=== PATIENT | female | born 1950 | race Caucasian/White ===

== ENCOUNTER 2017-08-20 13:30 | Outpatient (CLI) | payer BC ==
--- NOTE | 2017-08-20 15:57 | MRI ---
CERVICAL SPINE MRI WITHOUT CONTRAST 08/20/17 HISTORY: Cervical radiculitis. Neck pain radiating down both shoulders, arms, and hands. Headache x6 to 8 javier hs. COMPARISON: None. TECHNIQUE: Cervical spine MRI is performed without intravenous administration. Multisequential, multiplanar imag ing is performed. FINDINGS: Appropriate T1 marrow signal intensity of the cervical vertebrae. Cervical spine vertebral body heigh t is maintained. No fracture. No significant STIR hyperintensity to suggest edema or ligamentous inju ry. The visualized brain parenchyma, cervicomedullary junction, cervical cord, and the upper thoracic cor d have a normal size and signal intensity. C2-C3: No significant disc osteophyte complex. No significant central canal stenosis or foraminal olga rowing. C3-C4: No significant disc osteophyte complex. No significant central canal stenosis Mild bilateral f oraminal narrowing. C4-C5: No significant disc osteophyte complex. No significant central canal stenosis. Mild bilateral foraminal narrowing. C5-C6: Broad based disc osteophyte complex abuts the thecal sac. No significant central canal stenosi s. Right neural foramen is patent. Minimal left foraminal narrowing. C6-C7: Broad based disc osteophyte complex with a central component. Mild central canal stenosis. Dale ral foramina are patent bilaterally. C7-T1: No significant disc osteophyte complex. No significant central canal stenosis or foraminal olga rowing. IMPRESSION: Degenerative changes of the cervical spine as above. No high grade central canal stenosis. No high gr penny foraminal narrowing. POS: [facility]
== END 2017-08-20 13:31 | disposition home or self-care (01) ==
LOC: SCSMRI 13:30
PROVIDERS: ATTEND Orthopaedic Surgery Hand Surgery
DX: M47.22 Other spondylosis with radiculopathy, cervical region (principal)
CPT/HCPCS: 72141

== ENCOUNTER 2017-10-12 13:45 | Outpatient (CLI) | payer BC | END 2017-10-12 13:46 | disposition home or self-care (01) | LOC: BICMRI 13:45 | PROVIDERS: ATTEND Physician Assistant Surgical | DX: M47.26 Other spondylosis with radiculopathy, lumbar region (principal); M47.22 Other spondylosis with radiculopathy, cervical region; M48.061 Spinal stenosis, lumbar region without neurogenic claudication; M89.9 Disorder of bone, unspecified; M54.6 Pain in thoracic spine | CPT/HCPCS: 72050; 72110; 72146; 72148 ==

== ENCOUNTER 2017-12-11 10:26 | Outpatient (CLI) | payer BC ==
[2017-12-11 11:49] LABS: Hemoglobin 14.7 g/dL (12.0-16.0); Mean Corpuscular HGB CONC 33.9 g/dL (32.0-36.0); Mean Corpuscular Hemoglobin 31.2 pg (27.0-31.0); Platelet Count 230 thou/uL (130-400); RBC Distribution Width 11.5 % (11.5-14.5); White Blood Cell (WBC) Count 4.3 thou/uL (4.8-10.8)
[2017-12-11 11:55] LABS: INR-International Normal Ratio 0.9; PTT 28.4 SEC (22.9-36.1); Prothrombin Time 12.4 SEC (12.0-14.7)
[2017-12-11 12:12] LABS: Anion Gap 12 mmol/L (10-20); BUN (Urea Nitrogen) 23 mg/dL (9.8-20.1); Calc. Creatinine Clearance 0 mL/min (70-130); Calcium 9.6 mg/dL (7.8-10.44); Carbon Dioxide 29 mmol/L (23-31); Chloride 103 mmol/L (98-107); Estimated GFR-MDRD 73; Glucose 85 mg/dL (80-115); Potassium 4.5 mmol/L (3.5-5.1); Sodium 139 mmol/L (136-145)
== END 2017-12-11 10:27 | disposition home or self-care (01) ==
LOC: LABBT 10:26
PROVIDERS: ATTEND Surgery
DX: Z01.818 Encounter for other preprocedural examination (principal); M48.061 Spinal stenosis, lumbar region without neurogenic claudication; M54.16 Radiculopathy, lumbar region
CPT/HCPCS: 80048; 85027; 85610; 85730; 93005; 93010

== ENCOUNTER 2018-02-18 09:42 | Outpatient (CLI) | payer BC ==
[2018-02-18 10:43] LABS: Hemoglobin 15.1 g/dL (12.0-16.0); Mean Corpuscular HGB CONC 33.5 g/dL (32.0-36.0); Mean Corpuscular Hemoglobin 30.8 pg (27.0-31.0); Mean Platelet Volume 7.3 fL (7.4-10.4); Platelet Count 243 thou/uL (130-400); RBC Distribution Width 11.6 % (11.5-14.5); Red Blood Cell (RBC) Count 4.91 mill/uL (4.20-5.40); White Blood Cell (WBC) Count 5.4 thou/uL (4.8-10.8)
[2018-02-18 10:48] LABS: PTT 28.6 SEC (22.9-36.1); Prothrombin Time 12.7 SEC (12.0-14.7)
[2018-02-18 11:09] LABS: Anion Gap 13 mmol/L (10-20); BUN (Urea Nitrogen) 13 mg/dL (9.8-20.1); Calc. Creatinine Clearance 0 mL/min (70-130); Carbon Dioxide 27 mmol/L (23-31); Chloride 104 mmol/L (98-107); Estimated GFR-MDRD 70; Glucose 93 mg/dL (80-115); Potassium 4.1 mmol/L (3.5-5.1); Sodium 140 mmol/L (136-145)
== END 2018-02-18 09:43 | disposition home or self-care (01) ==
LOC: LABBT 09:42
PROVIDERS: ATTEND Surgery
DX: Z01.818 Encounter for other preprocedural examination (principal); M48.061 Spinal stenosis, lumbar region without neurogenic claudication; M54.16 Radiculopathy, lumbar region
CPT/HCPCS: 80048; 85027; 85610; 85730; 93005; 93010

== ENCOUNTER 2018-02-25 07:30 | Inpatient (IN) | payer BC ==
[2018-02-18 10:15] VITALS: BMI 25.7
[2018-02-25] MEDS ORDERED: Clindamycin/D5W 900 mg/50 ml Premix Bag ONE (07:54)
[2018-02-25] MEDS ORDERED: Levofloxacin 500 mg/D5W 100 ml Premix Bag ONE (07:55)
[2018-02-25] MEDS ORDERED: Bacitracin Zinc Ointment 30 gm TUBE ONE (09:01)
[2018-02-25] MEDS ORDERED: Fentanyl 100 MCG/2 ML VIAL ONE ×3 (09:38→13:32)
[2018-02-25] MEDS ORDERED: Midazolam HCl 2 mg/2 ml Vial ONE (09:52)
--- NOTE | 2018-02-25 12:11 | OP ---
DATE OF PROCEDURE: 02/25/2018 OR: 12 WOUND TYPE: Type 1 wound. SURGEON: Remy Nunn M.D. [employer] PICKER: Rajesh Adler PA-C. PREPROCEDURE DIAGNOSES: L4-5 stenosis with right L3 radiculopathy with right L2-L3 stenosis. POSTPROCEDURE DIAGNOSES: L4-5 stenosis with right L3 radiculopathy with right L2-L3 stenosis. PROCEDURE: 1. Right L2-L3 hemilaminotomy, foraminotomy and diskectomy. 2. L4-L5 laminectomy, partial facetectomy, and foraminotomies. 3. Use of operative microscope for microdissection. DESCRIPTION OF PROCEDURE: After informed consent was obtained from the patient, the patient brought to OR 12. Proper patient pause and identification was carried out. She was placed in excellent endo tracheal anesthesia and positioned prone on the OR table. All appropriate points were padded. We id entified the L2-L3 segment and a linear lowell was made over this region along with the L4-L5. This wa s kept at 1 incision given the anatomic layout of the patient's spine. Following proper patient paus e and identification and sterile cleansing, preparation and draping, the wound was then opened with a combination of sharp, monopolar and blunt dissection, we exposed the L4-L5 lamina. Localization melinda m confirmed our area of interest. We then performed L4-L5 laminectomy, partial facetectomy, foramino tomies excellent decompression of the common dural tube and the L4-L5 nerve roots. We then turned ou r attention to the right L2-L3 segment and hemilaminotomy was performed following exposure with excel lent decompression of the right L2-L3 segment. The microscope was brought in the field with a microd iskectomy performed at the right L2-L3 segment with excellent decompression of the right L2 and right L3 nerve roots. Copious irrigation occurred throughout. There was no CSF leak. We maximized hemos tasis. The wound was then closed in anatomic layers following the sprinkling of vancomycin powder. The patient then emerged from anesthesia.
[2018-02-25] MEDS ORDERED: Acetaminophen 325 MG TAB PO PRN (12:36)
[2018-02-25] MEDS ORDERED: traMADol HCl 50 MG TAB PO PRN (12:36)
[2018-02-25] MEDS ORDERED: Milk Of Magnesia 30 ML UDCUP PO PRN (12:36)
[2018-02-25] MEDS ORDERED: tiZANidine HCl 4 MG TAB PO PRN (12:36)
[2018-02-25] MEDS ORDERED: Bisacodyl 10 MG SUPP PR PRN (12:36)
[2018-02-25] MEDS ORDERED: Mag-Al 1200 mg/1200 mg/30 ML UDCUP PO PRN (12:36)
[2018-02-25] MEDS ORDERED: Promethazine HCl 25 MG/ML VIAL IM PRN (12:36)
[2018-02-25] MEDS ORDERED: Fleet Enema 133 ML BOT PR PRN (12:36)
[2018-02-25] MEDS ORDERED: Acetaminophen/Codeine 30-300mg Tablet PO PRN (12:36)
[2018-02-25] MEDS ORDERED: Ketorolac Tromethamine 30 MG/ML VIAL ONE (14:31)
[2018-02-25] MEDS ORDERED: PHENYLEPHRINE-NS 100 MCG/ML 10 ML SYRINGE ONE (14:43)
[2018-02-25] MEDS ORDERED: Ondansetron HCl/PF 4 MG/2 ML Vial ONE (14:43)
[2018-02-25] MEDS ORDERED: Glycopyrrolate 0.2 MG/ML 5 ML SYRINGE ONE (14:43)
[2018-02-25] MEDS ORDERED: Dexamethasone 20 MG/5 ML VIAL ONE (14:43)
[2018-02-25] MEDS ORDERED: PROPOFOL 200 MG/20 ML VIAL ONE (14:43)
[2018-02-25] MEDS ORDERED: ePHEDrine/0.9% NaCl/PF SYRINGE 50 mg/10 ml ONE (14:43)
[2018-02-25] MEDS ORDERED: Lidocaine 1% PF 5 ML VIAL ONE (14:43)
[2018-02-25] MEDS: Clindamycin/D5W 900 MG in Premix Bag 1 BAG IVPB SCH ×2 (15:49→23:35)
[2018-02-25] MEDS: Sodium Chloride 0.9% 1,000 ML IV SCH (16:16)
[2018-02-25] MEDS: Stress 600 With Zinc 1 TAB PO SCH (21:16)
[2018-02-25] MEDS: HYDROcodone/Acetaminophen 7.5/325 mg Tablet PO PRN (23:46)
[2018-02-26] MEDS: Sodium Chloride 0.9% 1,000 ML IV SCH (01:38)
[2018-02-26] MEDS ORDERED: Venlafaxine HCl XR 75 MG CAP PO SCH (09:00)
[2018-02-26] MEDS ORDERED: Lactinex Tablet PO SCH (09:00)
[2018-02-26] MEDS: HYDROcodone/Acetaminophen 7.5/325 mg Tablet PO PRN (09:37)
[2018-02-26] MEDS: Stress 600 With Zinc 1 TAB PO SCH (09:38)
[2018-02-26 12:21] VITALS: BP 124/75; TEMP 98.4
--- NOTE | 2018-02-26 15:29 | PRG ---
DATE OF SERVICE: 02/26/2018 Ms. Lombardo is postoperative day 1 from right L2-L3 hemilaminotomy, foraminotomy, diskectomy, and L4 -L5 laminectomy. She is doing well with improvement in her leg pain. She is mobilizing some, but we would like to maximize this and work on pain control. Should she meet criteria, we will plan for di dayanaraal. Her exam has demonstrated good strength in the lower extremity myotomes.
== END 2018-02-26 16:21 | disposition home or self-care (01) | DRG 520 ==
LOC: SDC 07:30 → SURG A 15:13
PROVIDERS: ADMIT Surgery; ATTEND Surgery
PROC: 0SB20ZZ Excision of Lumbar Vertebral Disc, Open Approach (ICD-10-PCS; principal; 2018-02-25)
PROC: 01NB0ZZ Release Lumbar Nerve, Open Approach (ICD-10-PCS; 2018-02-25)
DX: M48.061 Spinal stenosis, lumbar region without neurogenic claudication (principal); M54.16 Radiculopathy, lumbar region
CPT/HCPCS: 76001; A4216; J1100; J1885; J1956; J2001; J2250; J2405; J2704; J3010; J3370; J3490

== ENCOUNTER 2018-08-06 08:26 | Day surgery (SDC) | payer BC ==
[2018-08-05 08:48] VITALS: BMI 25.7
[2018-08-06 09:25] LABS: Bacteria/HPF None Seen HPF (None Seen); Hyaline Casts/LPF 4-6 HYALINE CAST LPF (0-3 Hyaline); Pathc Cast-AUWi Flag 0.72 (0-2.49); RBC/HPF 0-3 HPF (0-3); WBC/HPF 0-3 HPF (0-3)
--- NOTE | 2018-08-06 09:27 | RAD ---
TWO VIEWS CHEST: Date: 08-06-18 Comparison: None. History: Pre-operative patient. FINDINGS: There is no pneumothorax, pleural fluid, focal consolidation or alveolar edema. Heart and mediastinal contours appear grossly unremarkable. IMPRESSION: No acute findings. POS: [facility]
[2018-08-06 09:48] LABS: #Eosinphils 0.1 thou/uL (0.0-0.7); #Lymphocytes 1.2 thou/uL (1.20-3.40); #Monocytes 0.4 thou/uL (0.11-0.59); #Neutrophils 2.8 thou/uL (1.40-6.50); %Basophils 0.9 % (0.0-1.0); %Eosinophils 2.3 % (0.0-10.0); %Lymphocytes 26.8 % (21.0-51.0); %Monocytes 7.8 % (0.0-10.0); Mean Corpuscular HGB CONC 32.3 g/dL (32.0-36.0); Mean Corpuscular Hemoglobin 29.4 pg (27.0-31.0); Mean Corpuscular Volume 91.2 fL (78.0-98.0); Mean Platelet Volume 7.7 fL (7.4-10.4); Platelet Count 233 thou/uL (130-400); Red Blood Cell (RBC) Count 4.77 mill/uL (4.20-5.40); White Blood Cell (WBC) Count 4.6 thou/uL (4.8-10.8)
[2018-08-06] MEDS ORDERED: ePHEDrine/0.9% NaCl/PF SYRINGE 50 mg/10 ml ONE (11:50)
[2018-08-06] MEDS ORDERED: PROPOFOL 200 MG/20 ML VIAL ONE (11:50)
[2018-08-06] MEDS ORDERED: PHENYLEPHRINE-NS 100 MCG/ML 10 ML SYRINGE ONE (11:50)
[2018-08-06] MEDS ORDERED: Lidocaine 1% PF 5 ML VIAL ONE (11:50)
[2018-08-06] MEDS ORDERED: Dexamethasone 20 MG/5 ML VIAL ONE (11:50)
[2018-08-06] MEDS ORDERED: Clindamycin/D5W 600 mg/50 ml Premix Bag ONE (12:41)
[2018-08-06] MEDS ORDERED: Bupivacaine PF 0.5% 30 ML VIAL ONE (12:47)
[2018-08-06] MEDS ORDERED: Betamet Acet/Betamet Na Ph 30 MG/5 ML VIAL ONE (12:47)
[2018-08-06] MEDS ORDERED: Fentanyl 100 MCG/2 ML VIAL ONE (12:55)
[2018-08-06] MEDS ORDERED: Midazolam HCl 2 mg/2 ml Vial ONE (12:55)
[2018-08-06] MEDS ORDERED: Ketorolac Tromethamine 30 MG/ML VIAL ONE (15:45)
[2018-08-06] MEDS ORDERED: HYDROcodone/Acetaminophen 5/325 mg Tablet ONE (17:12)
--- NOTE | 2018-08-09 04:51 | OP ---
DATE OF PROCEDURE: 08/06/2018 PREOPERATIVE DIAGNOSES: 1. Cubital tunnel syndrome with possible ulnar nerve subluxation. 2. Guyon canal level compression of ulnar nerve. 3. Carpal tunnel syndrome. FINDINGS: 1. Tight transverse carpal ligament with median nerve compression of 1 cm area in the center of the transcarpal ligament. 2. Tight trans compression of the fascia just proximal to the pisiform ulnar nerve at the wrist. 3. Near hourglass constriction on the cubital tunnel itself, but just proximal to that actual subluxation of the ulnar nerve over the superior medial condyle. PROCEDURES PERFORMED: 1. Carpal tunnel release. 2. Guyon canal level ulnar neuroplasty. 3. Cubital tunnel level ulnar nerve neuroplasty. 4. Subluxing ulnar nerve, submuscular ulnar nerve transposition. 5. Olecranon bursectomy. COMPLICATIONS: None. ANESTHESIA: General LMA technique augmented by 30 mL of 0.5% Marcaine block, 20 given preoperative, 10 after procedure. DESCRIPTION OF PROCEDURE: After successful general LMA technique, the limb was prepped and draped. The patient then had time-out done appropriately. A sterile tourniquet was applied. The curvilinear incision for the combined Guyon and carpal tunnel was outlined as well as the midline incision for the cubital tunnel slightly medialized to avoid one over the center of the olecranon. Once the tourniquet was inflated and limb exsanguinated, we made a curvilinear incision, which extended to 2.5 cm proximal and 2.5 cm distal to the volar wrist flexion crease with a J-shaped 1 cm wide area between the palmaris longus and the pisiform. This was carried through the skin and subcutaneous tissue until we identified the ulnar nerve and our neurovascular bundle just proximal to the fascia and the fascia was tight, so we released it, followed this course through the transverse carpal ligament, released this as well as a portion about 1.5 cm distal to pisiform, which was also tight. We saw the bifurcation. We then dissected the radial portion distally and found the transverse carpal ligament and released it under direct visualization using a [place] blade as well. Here, we saw the early allograft formation as described above. We released the tourniquet and had to use the 3 clips for subcutaneous muscular bleeders to obtain hemostasis that we did. We closed the wound with interrupted 4-0 nylon in a mattress pattern, interrupted. We then covered this with a small Kerlix, re-exsanguinated the limb after a tourniquet time of 18 minutes and then the tourniquet had been down 20 minutes before it was reinflated. It was reinflated and then we began the midline incision, carried through the skin and subcutaneous tissue and the patient was very thin with minimal fat, so immediately we saw a very thick bursa of olecranon and incised this in the bursectomy. We identified the ulnar nerve approximately 8 cm proximal to the medial epicondyle, dissected it free where the intermuscular septum crossed it releasing this. We released a band 2 cm proximal to the medial epicondyle and after this, the nerve actually subluxed in range of motion. There was a very tight, almost area in the distal two-thirds of the cubital tunnel's primary ligament as well as the fascia over the heads of the flexor very tight. Once we had done this, we then dissected the nerve completely free, so it could be transposed over the medial epicondyle to prevent further subluxation. We then released the intermuscular septum by protecting all neurovascular bundle and the nerve for 9 cm and now performed a Z-plasty release of the flexor pronator group, elevating them approximately 15 cm on either side, so the nerve stayed under the flaps. We closed it gently with interrupted #1 Ethibond in a [id number] pattern. Tourniquet was deflated. Hemostasis was obtained. We closed this incision with a running 4-0 Monocryl and put Steri-Strips. Bulky dressing was applied with a long-arm splint. The patient left the operating room without complication. Job ID: [id number]
== END 2018-08-06 18:10 | disposition home or self-care (01) ==
LOC: SDC 08:26
PROVIDERS: ATTEND Orthopaedic Surgery Hand Surgery
PROC: 01S40ZZ Reposition Ulnar Nerve, Open Approach (ICD-10-PCS; principal; 2018-08-06)
PROC: 0MT30ZZ Resection of Right Elbow Bursa and Ligament, Open Approach (ICD-10-PCS; principal; 2018-08-06)
DX: G56.01 Carpal tunnel syndrome, right upper limb (principal); G56.21 Lesion of ulnar nerve, right upper limb; F32.9 Major depressive disorder, single episode, unspecified; E78.5 Hyperlipidemia, unspecified; M19.90 Unspecified osteoarthritis, unspecified site; Z88.1 Allergy status to other antibiotic agents; Z88.0 Allergy status to penicillin; Z79.899 Other long term (current) drug therapy
CPT/HCPCS: 36415; 71046; 81015; 85025; 88304; J0702; J1100; J1885; J2001; J2250; J2704; J3010; J3490; S0020